=== PATIENT | male | born 2000 | race Caucasian/White ===

== ENCOUNTER 2018-01-08 02:19 | Emergency (ER) | payer MEDICAID ==
--- NOTE | 2018-01-08 02:46 | ED Physician Chart ---
ED Chief Complaint/HPI - Patient Information Date Seen:: 01/08/18 Time Seen:: 02:46 Chief Complaint:: Nose bleed History of Present Illness:: 17 yo male had tendency of nose bleed since childhood. Today the bleeding episode lasted longer than usual duration without sign of stopping, patient called 911. At ER, the nose bleed stopped. Allergies:: Allergies Allergy/AdvReac Type Severity Reaction Status Date / Time No Known Allergies Allergy Verified 01/08/18 02:25 Vitals:: Vital Signs - 8 hr 01/08/18 02:26 Temp 98.6 F HR 90 RR 18 BP 121/72 ED Review of Systems - Review of Systems General/Constitutional: No fever, No chills Skin: No skin lesions Head: No headache Eyes: No pain ENT: Other (nose bleed) Neck: No neck pain Cardio Vascular: No chest pain Pulmonary: No SOB GI: No nausea, No vomiting Musculoskeletal: No bone or joint pain Psychiatric: No prior psych history ED Past Medical History - Past Medical History Past Medical History: No significant medical hx Surgical History: None Family Medical History - Family Member Mother History Unknown: Yes ED Physical Exam - Physical Examination General/Constitutional: Awake Head: Atraumatic Eyes: PERRL Skin: No ecchymosis Other ENMT comments:: blood clots in b/l nostrils without active bleeding Neck: No nuchal rigidity Respiratory: Clear to Auscultation Cardio Vascular: RRR, No murmur, gallop, rubs, NL S1 S2 GI: No tenderness/rebounding/guarding Extremities: normal strength in all extremities Neuro/Psych: No focal deficits ED Assessment - Assessment General Assessment: Epistaxis Assessment/Comments:: Epistaxis stopped D/c home Education provided F/u PCP or return to ER if symptoms worsen ED Septic Shock - . Is Septic Shock (SBP<90, OR Lactate>4 mmol\L) present?: No - <6hrs of presentation: Vital Signs: Vital Signs - 8 hr 01/08/18 02:26 Temp 98.6 F HR 90 RR 18 BP 121/72 ED Reassessment (Disposition) - Reassessment Reassessment Condition:: Improved - Patient Disposition Discharge/Transfer:: Home ED Discharge Plan - Patient Disposition Admit/Discharge/Transfer: PT DISCHARGED HOME Instructions: Nosebleed, [id number] Additional Instructions: follow up with [facility] doctor [place]
== END 2018-01-08 03:15 | disposition home or self-care (01) ==
LOC: ER 02:19
DX: R04.0 Epistaxis (principal)
CPT/HCPCS: Z7502